=== PATIENT | male | born 1955 | race Caucasian/White ===

== ENCOUNTER 2021-02-13 16:23 | Emergency (ER) | payer MEDICAID, OTHER ==
[~2021-02-13] VITALS: Ht 162.6 cm; Wt 68.2 kg
[2021-02-13 16:33] VITALS: BP 137/95
== END 2021-02-13 16:55 ==
LOC: EMS 16:25
DX: S00.81XA Abrasion of other part of head, initial encounter (principal); F10.20 Alcohol dependence, uncomplicated; E11.9 Type 2 diabetes mellitus without complications; I10 Essential (primary) hypertension; X58.XXXA Exposure to other specified factors, initial encounter; Y93.89 Activity, other specified; Y92.89 Other specified places as the place of occurrence of the external cause; Y99.8 Other external cause status; F17.210 Nicotine dependence, cigarettes, uncomplicated
CPT/HCPCS: 82962; 99283

== ENCOUNTER 2021-06-13 11:11 | Emergency (ER) | payer MEDICAID, OTHER ==
[~2021-06-13] VITALS: Ht 170.2 cm; Wt 68.2 kg
[2021-06-13 11:23] VITALS: BP 117/89
[2021-06-13 11:51] LABS: GLUCOSE,POINT OF CARE 86 MG/DL (70-110)
== END 2021-06-13 11:53 | disposition left against medical advice (07) ==
LOC: EMS 11:11
DX: F10.10 Alcohol abuse, uncomplicated (principal)
CPT/HCPCS: 82962; 99283

== ENCOUNTER → 2023-02-16 | Emergency (ER) | payer MEDICARE, OTHER ==
[~2023-02-16] VITALS: Ht 162.6 cm; Wt 60.0 kg
[2023-02-16 19:53] VITALS: BP 130/80; PULSE 92; RESP 17; TEMP 98
== END | disposition still patient (30) ==
LOC: EMS 19:51
DX: Z53.21 Procedure and treatment not carried out due to patient leaving prior to being seen by health care provider (principal)
CPT/HCPCS: 99281; Z7502

== ENCOUNTER 2024-07-18 08:23 | Inpatient (IN) | payer MEDICARE, OTHER ==
[~2024-07-18] VITALS: Ht 157.5 cm; Wt 48.0 kg
[~2024-07-18 08:23] MED LIST: METO25 PO; PANT-31 PO
[2024-07-18 09:29] LABS: BASOPHILS % (AUTO) 0.3 % (0.0-2.0); EOSINOPHILS % (AUTO) 0.6 % (1.0-6.0); HEMATOCRIT 34.6 % (41-53); HEMOGLOBIN 11.4 g/dL (13.5-17.5); LYMPHOCYTES # (AUTO) 0.5 K/uL (1.0-4.8); MEAN CORPUSCULAR HEMOGLOBIN 32.7 pg (26.0-34.0); MEAN CORPUSCULAR HGB CONC 32.9 G/dL (31.0-37.0); MEAN CORPUSCULAR VOLUME 99 fL (80-100); MONOCYTES # (AUTO) 0.9 K/uL (0.1-1.0); MONOCYTES % (AUTO) 7.5 % (2.0-9.0); NEUTROPHILS # (AUTO) 10.1 K/uL (1.8-7.7); PLATELET COUNT (AUTO) 254 K/uL (150-450); RED BLOOD CELL COUNT(AUTO) 3.48 MIL/uL (4.50-5.90); RED CELL DISTRIBUTION WIDTH 14.1 % (11.5-14.5); WHITE BLOOD COUNT (AUTO) 11.5 K/uL (4.5-11.0)
[2024-07-18 09:30] LABS: NEUTROPHILS % (AUTO) 87.6 % (40.0-70.0)
[2024-07-18 09:32] LABS: ANION GAP 8 mmol/L (8-16); CARBON DIOXIDE 26 mmol/L (22-29); CHLORIDE 105 mmol/L (98-107); CREATININE 1.02 mg/dL (0.60-1.30); GLOMERULAR FILTR. RATE CALC > 60 mL/min (>60); GLUCOSE,RANDOM 83 mg/dL (70-110); POTASSIUM 3.8 mmol/L (3.5-5.1); SODIUM SERUM 139 mmol/L (136-145); UREA NITROGEN, BLOOD 35 mg/dL (7-18)
[2024-07-18 09:38] LABS: ALBUMIN 2.9 g/dL (3.4-5.0); BILIRUBIN,DIRECT 0.2 mg/dL (0.00-0.20)
[2024-07-18 09:42] LABS: ALCOHOL, BLOOD (SERUM) < 3 mg/dL (0-10)
[2024-07-18 09:45] LABS: TROPONIN I-HIGH SENSITIVITY 17 ng/L (<76)
[2024-07-18 09:47] LABS: LACTIC ACID 2.5 mmol/L (0.4-2.0)
[2024-07-18] MEDS: SODIUM CHLORIDE 0.9% 1,000 ML IV ONE ×2 (09:50→13:06)
[2024-07-18 09:53] LABS: RBC MORPHOLOGY COMMENT NORMAL RBC MORPH
[2024-07-18] MEDS: NALOXONE HCL 1 MG/ML 2 ML SYRINGE IVP ONE (11:05)
[2024-07-18] MEDS ORDERED: BACTDSB PO (16:00)
[2024-07-18] MEDS ORDERED: CEPH500C3 PO (16:00)
[2024-07-18] MEDS ORDERED: NALOXONE HCL 1 MG/ML 2 ML SYRINGE IVP PRN (16:30)
[2024-07-18] MEDS ORDERED: ALBUTEROL SULFATE 2.5 MG/0.5 ML NEB SOLUTION NEB PRN (16:30)
[2024-07-18] MEDS ORDERED: IBUPROFEN 600 MG TABLET PO PRN (16:30)
[2024-07-18] MEDS ORDERED: BISACODYL 10 MG RECTAL RECTAL SUPPOSITORY PR PRN (16:30)
[2024-07-18] MEDS ORDERED: MAG HYDROX/ALUMINUM HYD/SIMETH ES 30 ML SUSPENSION UDCUP PO PRN (16:30)
[2024-07-18] MEDS ORDERED: IPRATROPIUM BROMIDE 0.5 MG/2.5 ML NEB SOLUTION NEB PRN (16:30)
[2024-07-18] MEDS ORDERED: MAGNESIUM HYDROXIDE SUSPENSION 30 ML UDCUP PO PRN (16:30)
[2024-07-18] MEDS ORDERED: ONDANSETRON HCL 4 MG/2 ML VIAL IVP PRN (16:30)
[2024-07-18] MEDS ORDERED: CloNIDine HCL 0.1 MG TABLET PO PRN (16:30)
[2024-07-18] MEDS ORDERED: ACETAMINOPHEN 325 MG TABLET PO PRN (16:30)
[2024-07-18] MEDS ORDERED: HydrOXYzine PAMOATE 50 MG CAPSULE PO PRN (16:30)
[2024-07-18 16:46] VITALS: BP 134/63; PULSE 53; RESP 17; TEMP 98.3; O2SAT 93
[2024-07-18 17:38] VITALS: BP 139/68; PULSE 74; RESP 17; TEMP 98.1; O2SAT 98
[2024-07-18 20:00] VITALS: BP 105/54; PULSE 83; RESP 17; TEMP 98.8; O2SAT 99
[2024-07-18] MEDS: METOPROLOL TARTRATE 25 MG TABLET PO SCH (20:25)
[2024-07-19] VITALS (7 sets, daily range): BP systolic 108–133; BP diastolic 56–75; PULSE 62–84; RESP 17–18; TEMP 97.9–98.7; O2SAT 95–100
[2024-07-19] MEDS: HEPARIN SODIUM,PORCINE 5,000 UNITS/ML VIAL SQ SCH
[2024-07-19 06:52] LABS: BASOPHILS % (AUTO) 0.8 % (0.0-2.0); EOSINOPHILS % (AUTO) 1.9 % (1.0-6.0); HEMATOCRIT 34.1 % (41-53); HEMOGLOBIN 11.5 g/dL (13.5-17.5); LYMPHOCYTES # (AUTO) 0.5 K/uL (1.0-4.8); LYMPHOCYTES % (AUTO) 7.5 % (22.0-44.0); MEAN CORPUSCULAR HEMOGLOBIN 33.4 pg (26.0-34.0); MEAN CORPUSCULAR HGB CONC 33.8 G/dL (31.0-37.0); MEAN CORPUSCULAR VOLUME 99 fL (80-100); MONOCYTES # (AUTO) 0.6 K/uL (0.1-1.0); MONOCYTES % (AUTO) 8.2 % (2.0-9.0); NEUTROPHILS # (AUTO) 5.9 K/uL (1.8-7.7); NEUTROPHILS % (AUTO) 81.6 % (40.0-70.0); PLATELET COUNT (AUTO) 241 K/uL (150-450); RED BLOOD CELL COUNT(AUTO) 3.45 MIL/uL (4.50-5.90); RED CELL DISTRIBUTION WIDTH 13.6 % (11.5-14.5); WHITE BLOOD COUNT (AUTO) 7.2 K/uL (4.5-11.0)
[2024-07-19 07:14] LABS: ALANINE AMINOTRANSFERASE 18 U/L (12-78); ALBUMIN 2.6 g/dL (3.4-5.0); ALKALINE PHOSPHATASE 68 U/L (46-116); ANION GAP 7 mmol/L (8-16); ASPARTATE AMINOTRANSFERASE 24 U/L (15-37); BILIRUBIN,TOTAL 1.2 mg/dL (0.1-1.0); CALCIUM, TOTAL 8.5 mg/dL (8.8-10.5); CARBON DIOXIDE 26 mmol/L (22-29); CHLORIDE 106 mmol/L (98-107); CREATININE 0.72 mg/dL (0.60-1.30); GLOMERULAR FILTR. RATE CALC > 60 mL/min (>60); GLUCOSE,RANDOM 81 mg/dL (70-110); POTASSIUM 4.1 mmol/L (3.5-5.1); SODIUM SERUM 139 mmol/L (136-145); TOTAL PROTEIN, SERUM 6.5 g/dL (6.4-8.2); UREA NITROGEN, BLOOD 20 mg/dL (7-18)
[2024-07-19] MEDS: PANTOPRAZOLE SODIUM 40 MG DR TABLET PO SCH (08:40)
[2024-07-19] MEDS ORDERED: PANTOPRAZOLE SODIUM 40 MG DR TABLET PO SCH (09:00)
[2024-07-20 04:34] VITALS: BP 102/46; PULSE 62; RESP 17; TEMP 98.6; O2SAT 96
[2024-07-20 07:35] VITALS: BP 109/67; PULSE 58; RESP 18; TEMP 97.5; O2SAT 95
[2024-07-20 12:00] VITALS: BP 102/62; PULSE 64; RESP 18; TEMP 97.9; O2SAT 95
[2024-07-20 15:34] VITALS: BP 100/60; PULSE 57; RESP 18; TEMP 97.9; O2SAT 96
[2024-07-20 20:00] VITALS: BP 148/76; PULSE 67; RESP 19; TEMP 97.7; O2SAT 95
[2024-07-20] MEDS: ZOLPIDEM TARTRATE 5 MG TABLET PO PRN (20:56)
[2024-07-21 04:27] VITALS: BP 103/59; PULSE 64; RESP 18; TEMP 98.2; O2SAT 97
[2024-07-21 07:07] VITALS: BP 119/53; PULSE 52; RESP 18; TEMP 98; O2SAT 93
[2024-07-21 11:46] VITALS: BP 106/54; PULSE 50; RESP 18; TEMP 98.4; O2SAT 96
[2024-07-21 14:08] LABS: BASOPHILS % (AUTO) 0.4 % (0.0-2.0); EOSINOPHILS % (AUTO) 1.6 % (1.0-6.0); HEMATOCRIT 35.5 % (41-53); LYMPHOCYTES # (AUTO) 0.7 K/uL (1.0-4.8); LYMPHOCYTES % (AUTO) 7.6 % (22.0-44.0); MEAN CORPUSCULAR HEMOGLOBIN 33.3 pg (26.0-34.0); MEAN CORPUSCULAR HGB CONC 33.8 G/dL (31.0-37.0); MEAN CORPUSCULAR VOLUME 99 fL (80-100); MONOCYTES % (AUTO) 11.4 % (2.0-9.0); NEUTROPHILS # (AUTO) 7.2 K/uL (1.8-7.7); PLATELET COUNT (AUTO) 290 K/uL (150-450); RED BLOOD CELL COUNT(AUTO) 3.59 MIL/uL (4.50-5.90); RED CELL DISTRIBUTION WIDTH 13.6 % (11.5-14.5); WHITE BLOOD COUNT (AUTO) 9.2 K/uL (4.5-11.0)
[2024-07-21 14:22] LABS: ANION GAP 7 mmol/L (8-16); CALCIUM, TOTAL 8.8 mg/dL (8.8-10.5); CARBON DIOXIDE 27 mmol/L (22-29); CHLORIDE 104 mmol/L (98-107); CREATININE 0.99 mg/dL (0.60-1.30); GLOMERULAR FILTR. RATE CALC > 60 mL/min (>60); GLUCOSE,RANDOM 86 mg/dL (70-110); POTASSIUM 4.7 mmol/L (3.5-5.1); SODIUM SERUM 138 mmol/L (136-145); UREA NITROGEN, BLOOD 25 mg/dL (7-18)
[2024-07-21 14:27] LABS: ALANINE AMINOTRANSFERASE 17 U/L (12-78); ALBUMIN 2.6 g/dL (3.4-5.0); ALKALINE PHOSPHATASE 77 U/L (46-116); ASPARTATE AMINOTRANSFERASE 17 U/L (15-37); BILIRUBIN,TOTAL 0.6 mg/dL (0.1-1.0); TOTAL PROTEIN, SERUM 7.1 g/dL (6.4-8.2)
[2024-07-21] MEDS ORDERED: HALOPERIDOL LACTATE 5 MG/ML VIAL IM PRN (15:30)
[2024-07-21 16:06] VITALS: BP 101/64; PULSE 54; RESP 18; TEMP 97.9; O2SAT 96
[2024-07-21 18:28] LABS: COVID AG,FIA SOURCE NASAL SWAB
[2024-07-21 18:59] LABS: SARS-COV2 (COVID) ANTIGEN,FIA Positive (Negative)
[2024-07-21 20:03] VITALS: BP 108/48; PULSE 71; RESP 19; TEMP 98.4; O2SAT 96
[2024-07-21] MEDS: RisperiDONE 2 MG TABLET PO SCH (21:50)
[2024-07-22 01:19] VITALS: BP 105/58; PULSE 63; RESP 19; TEMP 98.1; O2SAT 98
[2024-07-22 03:58] VITALS: BP 104/54; PULSE 66; RESP 19; TEMP 98.4; O2SAT 98
[2024-07-22 07:45] VITALS: BP 94/45; PULSE 56; RESP 18; TEMP 98.4; O2SAT 100
[2024-07-22 11:28] VITALS: BP 101/51; PULSE 60; RESP 18; TEMP 97.7; O2SAT 100
[2024-07-22 16:10] VITALS: BP 112/57; PULSE 64; RESP 18; TEMP 98.2; O2SAT 100
[2024-07-22 19:31] VITALS: BP 115/52; PULSE 65; RESP 18; TEMP 98.6; O2SAT 100
[2024-07-23 04:18] VITALS: BP 135/82; PULSE 88; RESP 18; TEMP 97.3; O2SAT 99
[2024-07-23 07:15] VITALS: BP 128/80; PULSE 82; RESP 18; TEMP 97.9; O2SAT 98
[2024-07-23 15:05] VITALS: BP 132/78; PULSE 76; RESP 18; TEMP 98.4; O2SAT 97
[2024-07-23] MEDS: DEXTROSE 5%-LACTATED RINGERS 1,000 ML IV ONE (16:51)
[2024-07-23 19:30] VITALS: BP 116/59; PULSE 57; RESP 16; TEMP 98; O2SAT 98
[2024-07-24 04:00] VITALS: BP 110/62; PULSE 58; RESP 16; TEMP 97.6; O2SAT 99
[2024-07-24 07:12] VITALS: BP 118/64; PULSE 62; RESP 18; TEMP 98.2; O2SAT 97
[2024-07-24] MEDS: DEXAMETHASONE SOD PHOS 10 MG/ML VIAL IVP ONE (12:41)
[2024-07-24] MEDS: LORazepam 2 MG/ML VIAL IM PRN (12:41)
[2024-07-24 15:06] VITALS: BP 124/68; PULSE 66; RESP 20; TEMP 97.9; O2SAT 95
[2024-07-24 19:29] VITALS: BP 108/56; PULSE 61; RESP 20; TEMP 98.2; O2SAT 97
[2024-07-25 05:49] VITALS: BP 110/62; PULSE 58; RESP 20; TEMP 97.8; O2SAT 98
[2024-07-25 08:00] VITALS: BP 101/58; PULSE 79; RESP 19; TEMP 98; O2SAT 98
[2024-07-25 13:34] LABS: COVID AG,FIA SOURCE NASAL SWAB
[2024-07-25 14:26] LABS: SARS-COV2 (COVID) ANTIGEN,FIA Negative (Negative)
[2024-07-25 15:15] VITALS: BP 114/62; PULSE 76; RESP 20; TEMP 98.2; O2SAT 95
[2024-07-25] MEDS ORDERED: DEXA2 PO (16:12)
[2024-07-25] MEDS ORDERED: HEPA500018 SQ (16:13)
[2024-07-25] MEDS ORDERED: METO25 PO (16:14)
[2024-07-25] MEDS ORDERED: PANT-31 PO (16:15)
[2024-07-25] MEDS ORDERED: RISP-32 PO (16:15)
[2024-07-25] MEDS ORDERED: ACET-2247 PO (16:17)
[2024-07-25] MEDS ORDERED: ALBU2.5V39 NEB (16:18)
[2024-07-25] MEDS ORDERED: BISA-151 PO (16:19)
[2024-07-25] MEDS ORDERED: HALO5VIA16 IM (16:21)
[2024-07-25] MEDS ORDERED: CLON0.1T2 PO (16:21)
[2024-07-25] MEDS ORDERED: HYDR50CA7 PO (16:22)
[2024-07-25] MEDS ORDERED: IPRA0.2S49 NEB (16:23)
[2024-07-25] MEDS ORDERED: LORA2TAB18 PO (16:24)
[2024-07-25] MEDS ORDERED: MAGN-169 PO (16:24)
[2024-07-25] MEDS ORDERED: ONDA2VIA4 IVP (16:25)
[2024-07-25] MEDS ORDERED: NALO1SYR6 IVP (16:25)
[2024-07-25] MEDS ORDERED: ZOLP5TAB8 PO (16:26)
[2024-07-25] MEDS: DEXAMETHASONE 2 MG TABLET PO SCH (16:53)
[2024-07-25] MEDS ORDERED: DEXAMETHASONE SOD PHOS 4 MG/ML VIAL IVP SCH (18:00)
[2024-07-25 18:51] LABS: COVID AG,FIA SOURCE NASAL SWAB
[2024-07-25 19:20] LABS: SARS-COV2 (COVID) ANTIGEN,FIA Negative (Negative)
[2024-07-25 19:56] VITALS: BP 102/51; PULSE 67; RESP 19; TEMP 97.6; O2SAT 96
[2024-07-26 04:27] VITALS: BP 104/52; PULSE 58; RESP 18; TEMP 97.5; O2SAT 96
[2024-07-26 08:02] VITALS: BP 107/60; PULSE 62; RESP 18; TEMP 97.5; O2SAT 97
== END 2024-07-26 14:41 | DRG 917 ==
LOC: EMS 08:25 → EDH 14:09 → 5N 15:48 → 6N 07-22 14:03
PROVIDERS: ADMIT Hospitalist; ATTEND Hospitalist
PROC: 05HB33Z Insertion of Infusion Device into Right Basilic Vein, Percutaneous Approach (ICD-10-PCS; principal; 2024-07-24)
PROC: B54MZZA Ultrasonography of Right Upper Extremity Veins, Guidance (ICD-10-PCS; 2024-07-24)
DX: T40.411A Poisoning by fentanyl or fentanyl analogs, accidental (unintentional), initial encounter (principal); E43 Unspecified severe protein-calorie malnutrition; U07.1 COVID-19; Z68.1 Body mass index [BMI] 19.9 or less, adult; Z59.00 Homelessness unspecified; D64.9 Anemia, unspecified; I10 Essential (primary) hypertension; F10.10 Alcohol abuse, uncomplicated; F19.10 Other psychoactive substance abuse, uncomplicated; F25.9 Schizoaffective disorder, unspecified; M48.061 Spinal stenosis, lumbar region without neurogenic claudication; F17.210 Nicotine dependence, cigarettes, uncomplicated; Y90.9 Presence of alcohol in blood, level not specified; R15.9 Full incontinence of feces; R32 Unspecified urinary incontinence; Z79.899 Other long term (current) drug therapy; Y92.89 Other specified places as the place of occurrence of the external cause; Z83.3 Family history of diabetes mellitus
CPT/HCPCS: 36245; 36569; 71045; 72131; 72158; 76937; 80048; 80053; 80061; 80076; 83036; 83605; 84484; 85025; 96361; 96374; 99285; G0480; J1100; J1644; J2060; J2310; J8540; 36415-L1; 36415-TC

== ENCOUNTER 2024-09-30 11:59 | Emergency (ER) | payer MEDICARE, OTHER ==
[~2024-09-30] VITALS: Ht 175.3 cm; Wt 61.7 kg
[~2024-09-30 11:59] MED LIST changes: +ACET-2247 PO; +DEXA2 PO; +HALO5VIA16 IM; +LORA2TAB18 PO; +MAGN-169 PO; +NALO1SYR6 IVP; +ONDA2VIA4 IVP; +RISP-32 PO; +ZOLP5TAB8 PO
[2024-09-30 12:07] VITALS: TEMP 98.2
[2024-09-30] MEDS ORDERED: SERT-158 PO (12:27)
[2024-09-30] MEDS ORDERED: CLOZ100T61 PO (12:27)
[2024-09-30] MEDS ORDERED: CLON0.1T2 PO (12:27)
[2024-09-30] MEDS ORDERED: MEMA10TA24 PO (12:27)
[2024-09-30 12:51] LABS: BASOPHILS % (AUTO) 0.1 % (0.0-2.0); EOSINOPHILS % (AUTO) 2.3 % (1.0-6.0); HEMATOCRIT 36.9 % (41-53); HEMOGLOBIN 12.4 g/dL (13.5-17.5); LYMPHOCYTES # (AUTO) 0.7 K/uL (1.0-4.8); LYMPHOCYTES % (AUTO) 5.9 % (22.0-44.0); MEAN CORPUSCULAR HEMOGLOBIN 31.2 pg (26.0-34.0); MEAN CORPUSCULAR HGB CONC 33.6 G/dL (31.0-37.0); MEAN CORPUSCULAR VOLUME 93 fL (80-100); MONOCYTES # (AUTO) 0.7 K/uL (0.1-1.0); MONOCYTES % (AUTO) 6.4 % (2.0-9.0); NEUTROPHILS # (AUTO) 9.8 K/uL (1.8-7.7); PLATELET COUNT (AUTO) 286 K/uL (150-450); RED BLOOD CELL COUNT(AUTO) 3.97 MIL/uL (4.50-5.90); RED CELL DISTRIBUTION WIDTH 13.4 % (11.5-14.5); WHITE BLOOD COUNT (AUTO) 11.4 K/uL (4.5-11.0)
[2024-09-30 13:05] LABS: NEUTROPHILS % (AUTO) 85.3 % (40.0-70.0)
[2024-09-30 13:06] LABS: ANION GAP 5 mmol/L (8-16); B-TYPE NATRIURETIC PEPTIDE 100 pg/mL (0-100); CARBON DIOXIDE 31 mmol/L (22-29); CHLORIDE 106 mmol/L (98-107); CREATININE 1.15 mg/dL (0.60-1.30); GLOMERULAR FILTR. RATE CALC > 60 mL/min (>60); GLUCOSE,RANDOM 96 mg/dL (70-110); POTASSIUM 4.8 mmol/L (3.5-5.1); SODIUM SERUM 142 mmol/L (136-145); UREA NITROGEN, BLOOD 27 mg/dL (7-18)
[2024-09-30 13:12] LABS: ALANINE AMINOTRANSFERASE 16 U/L (12-78); ALBUMIN 2.8 g/dL (3.4-5.0); ALKALINE PHOSPHATASE 95 U/L (46-116); ASPARTATE AMINOTRANSFERASE 18 U/L (15-37); BILIRUBIN,TOTAL 0.5 mg/dL (0.1-1.0); CREATINE KINASE, TOTAL ONLY 68 U/L (39-308); TOTAL PROTEIN, SERUM 7.1 g/dL (6.4-8.2)
[2024-09-30 13:17] LABS: TROPONIN I-HIGH SENSITIVITY 9 ng/L (<76)
[2024-09-30 13:19] LABS: ALCOHOL, BLOOD (SERUM) < 3 mg/dL (0-10)
[2024-09-30] MEDS: SODIUM CHLORIDE 0.9% 500 ML IV ONE (13:36)
[2024-09-30 15:39] LABS: TROPONIN I-HIGH SENSITIVITY 9 ng/L (<76)
[2024-09-30 17:07] VITALS: BP 168/89; PULSE 82; RESP 21; O2SAT 95
[2024-10-06] MEDS ORDERED: CLOZ100T61 PO (09:04)
[2024-10-06] MEDS ORDERED: SERT-158 PO (09:05)
== END 2024-09-30 17:14 | disposition home or self-care (01) ==
LOC: EMS 11:59
DX: I95.9 Hypotension, unspecified (principal); E11.9 Type 2 diabetes mellitus without complications; I10 Essential (primary) hypertension; F17.210 Nicotine dependence, cigarettes, uncomplicated; F12.90 Cannabis use, unspecified, uncomplicated; F11.90 Opioid use, unspecified, uncomplicated; F14.90 Cocaine use, unspecified, uncomplicated; F10.90 Alcohol use, unspecified, uncomplicated; Z79.899 Other long term (current) drug therapy; Y90.9 Presence of alcohol in blood, level not specified
CPT/HCPCS: 99285; 71045; 80048; 80076; 82550; 83735; 83880; 84484; 85025; 36415; 93005; G0480; J7040; 96360; 96361; J7030